=== PATIENT | male | born 1955 | race Caucasian/White ===

== ENCOUNTER 2016-10-12 19:24 | Inpatient (IN) | payer OTHER ==
[~2016-10-12] VITALS: Ht 188 cm; Wt 95.0 kg
[2016-10-12] MEDS ORDERED: LIDOCAINE/MYLANTA 40 ML BTL PO STA (20:23)
[2016-10-12] MEDS ORDERED: BELLADONNA/PHENOBARBITAL TAB PO STA (20:23)
[2016-10-12] MEDS ORDERED: morphine 4 MG/ML VIAL IV STA (20:23)
[2016-10-12] MEDS ORDERED: SOD CHLORIDE 0.9% 1,000 ML IV STA (20:23)
[2016-10-12] MEDS ORDERED: ONDANSETRON 4 MG INJ IV STA (20:23)
[2016-10-12 20:45] LABS: ABNORMAL IP MESSAGE 1; BASOPHILS % 0.2 % (0.0-2.0); EOSINOPHILS # 0.1 10^3/ul (0.0-0.5); EOSINOPHILS % 1.2 % (0.0-7.0); HEMATOCRIT 43.6 % (42.0-52.0); HEMOGLOBIN 14.6 g/dl (14.0-18.0); LYMPHOCYTES # 0.6 10^3/ul (0.8-2.9); LYMPHOCYTES % 5.2 % (15.0-51.0); MEAN CORPUSCULAR HEMOGLOBIN 31.3 pg (29.0-33.0); MEAN CORPUSCULAR HGB CONC 33.5 g/dl (32.0-37.0); MEAN CORPUSCULAR VOLUME 93.4 fl (82.0-101.0); MEAN PLATELET VOLUME 9.2 fl (7.4-10.4); MONOCYTE # 0.7 10^3/ul (0.3-0.9); MONOCYTES % 6.3 % (0.0-11.0); NEUTROPHILS % 86.7 % (39.0-77.0); NUCLEATED RED BLOOD CELLS% 0.2 /100WBC (0.0-0.0); PLATELET COUNT 300 10^3/UL (140-415); POSITIVE DIFF @See below; RED BLOOD COUNT 4.67 10^6/ul (4.70-6.10); RED CELL DISTRIBUTION WIDTH 13.1 % (11.5-14.5); WHITE BLOOD COUNT 10.9 10^3/ul (4.8-10.8)
[2016-10-12 21:06] LABS: INR 0.95; PROTIME 12.7 Sec (12.2-14.2)
[2016-10-12 21:07] LABS: ALBUMIN 4.2 g/dl (3.3-4.9); ALBUMIN/GLOBULIN RATIO 1.27; BILIRUBIN,INDIRECT 0.3 mg/dl (0-1.1); BILIRUBIN,TOTAL 0.3 mg/dl (0.2-1.3); CALCIUM 9.2 mg/dl (8.4-10.2); CREATININE 0.86 mg/dl (0.61-1.24); TOTAL PROTEIN 7.5 g/dl (6.1-8.1)
[2016-10-12] MEDS ORDERED: KETOROLAC 15 MG INJ IV ONE (21:47)
--- NOTE | 2016-10-12 21:50 | RADRPT ---
AMENDMENT: 10/21/2016 10:49:50 PM Karen Marshall M.D One or more of the following dose reduction techniques were used: - Automated exposure control. - Adjustment of the mA and/or kV according to patient size. - Use of iterative reconstruction technique. PROCEDURE: CT ABDOMEN AND PELVIS WITHOUT CONTRAST: CLINICAL INDICATION: 60 years of age, male, left lower quadrant pain . COMPARISON: None available. TECHNIQUE: CT of the abdomen and pelvis was performed without intravenous contrast. Oral contrast wa s not administered prior to the examination. Coronal and sagittal reformatted images were obtained from the axial source images. Images were revi ewed on a high-resolution PACS workstation. Dose information: Based on a 32 cm phantom, the estimated radiation dose (CTDI vol mGy) for each ser ies in this exam is 14. The estimated cumulative dose (DLP mGy-cm) is 838. FINDINGS: In the absence of intravenous contrast, the study constitutes a limited assessment of the solid orga ns, bowel and vessels. LUNG BASES: Right lung base atelectasis. Coronary artery calcification greatest along LAD. There i s elevation of the right diaphragm. ABDOMEN/PELVIS: Liver: Indeterminate sub centimeter hypodensity right lobe segment 6 cannot be characterized (3/53). Otherwise normal. Gallbladder: Wall thickening and luminal narrowing of the gastric fundus as likely due to focal stef omyomatosis. Otherwise unremarkable. Bile ducts: No intrahepatic or extrahepatic biliary duct dilatation. Spleen: Normal noncontrast appearance. Pancreas: Normal noncontrast appearance. Adrenal glands: Normal noncontrast appearance. Kidneys and ureters: 2.2 cm left renal parenchymal hypodensity likely represents a cyst. Kidneys ar e otherwise normal. Negative for hydronephrosis. Negative for urinary calculi. Aorta and IVC: Atherosclerosis aorta and iliac vessels. No aneurysm. Lymph nodes: Normal noncontrast appearance. Gastrointestinal tract: There is circumferential mural thickening of the sigmoid colon with numerou s diverticula and edema in the surrounding fat most in keeping with acute diverticulitis. The wall thickening is pronounced and other inflammatory conditions cannot be excluded including inflammatory neoplasms. Negative for surrounding adenopathy. There is diverticulosis in the remaining colon gre atest in the descending colon. Upstream the colon is decompressed. There is dilated small bowel in the left mid abdomen measuring up to 3.3 cm with the small bowel fec es sign (601/44). Zone of transition from dilated bowel to collapsed bowel is the left lower quadra nt where there is abrupt kinking of the bowel (601/32). There is distension of the duodenum measuri ng 4.1 cm. Stomach is decompressed. Gas in distal esophagus may be due to reflux or vomiting. Appendix: Normal Bladder: There is a right posterior lateral bladder diverticulum. Otherwise normal. Pelvic Organs: Enlarged prostate gland indents bladder base. Peritoneal cavity: No free fluid or free intraperitoneal air. Single bubble of gas in the extraper itoneal compartment in the right upper quadrant is of uncertain significance (601/46) Abdominal wall: Normal noncontrast appearance. BONES: Musculoskeletal: Multilevel degenerative changes in spine greatest at L5-S1. No suspicious bone les ions. IMPRESSION: Segmental colitis of the sigmoid colon with associated diverticula likely representing acute diverti culitis without evidence of perforation or abscess. The wall thickening is pronounced and a neoplas tic process cannot be excluded. Recommend correlation with results of prior colonoscopies or follow -up colonoscopy after the acute situation subsides. Partial distal small bowel obstruction likely due to an adhesion in the left lower quadrant with mil d upstream dilatation of small bowel. RPTAT: HCTS Physician Erin Date Time Electronically viewed and signed by Matthew Marshall Physician on 10/21/2016 22:50 CS/
[2016-10-12 22:30] VITALS: TEMP 99.1
[2016-10-12] MEDS ORDERED: metroNIDAZOLE 500 MG/NS (PMX) 100 ML IVPB ONE (22:30)
[2016-10-12] MEDS ORDERED: LEVOFLOXACIN 750MG/D5W (PMX) 150 ML IVPB ONE (22:30)
--- NOTE | 2016-10-12 23:09 | RADRPT ---
PROCEDURE: Portable chest x-ray. CLINICAL INDICATION: 60-year of age, male. Rule out infiltrates TECHNIQUE: Portable AP view of the chest. COMPARISON: None available. FINDINGS: There is a left subclavian indwelling port catheter with the tip over the inferior SVC. Cardiomediastinal contours are normal. Decreased lung volumes. There is bibasilar lung consolidation that may represent aspiration or pneu monia. Negative for pleural effusion or pneumothorax. No acute bony abnormality. IMPRESSION: Bibasilar lung consolidation may represent aspiration or pneumonia. Decreased lung volumes. RPTAT: HCTS Physician Erin Date Time Electronically viewed and signed by Physician Erin on 10/12/2016 23:08 CS/
--- NOTE | 2016-10-12 23:46 | ERA ---
ER Documentation Chief Complaint Date/Time DATE: 10/12/16 TIME: 23:40 Chief Complaint lower abd/pelvic pain begain LLQ x few hours, hx rectal CA HPI 60-year-old man with a history of rectal carcinoma status post chemo and radiation therapy in December 2015 presents with lower abdominal pain and nausea. Patient denies diarrhea or blood per rectum, no recent weight loss, no vomiting, no chest pain or shortness of breath. Patient states he ate [place] food last night and attributes abdominal cramping to that. ROS All systems reviewed and are negative except as per history of present illness. Medications Home Meds No Active Prescriptions or Reported Meds Allergies Allergies: Coded Allergies: Penicillins (Verified Allergy, Unknown, 10/12/16) PMhx/Soc Rectal carcinoma History of Surgery: No Anesthesia Reaction: No Hx Neurological Disorder: No Hx Respiratory Disorders: No Hx Cardiac Disorders: No Hx Psychiatric Problems: No Hx Alcohol Use: No Hx Substance Use: No Hx Tobacco Use: No Smoking Status: Never smoker FmHx Family History: No diabetes Physical Exam Vitals Vital Signs Date Time Temp Pulse Resp B/P Pulse Ox O2 Delivery O2 Flow Rate FiO2 10/12/16 23:30 16 100/63 94 Nasal Cannula 3.0 10/12/16 22:30 99.1 93 16 102/57 94 Nasal Cannula 2.0 10/12/16 21:34 90 20 103/71 94 Nasal Cannula 2.0 10/12/16 19:38 98.9 89 21 99/69 97 Physical Exam GENERAL: Well-developed, well-nourished, appears dehydrated, febrile HEENT: Dry mucous membranes, pink conjunctiva, no cervical spine tenderness or step-off deformities, no goiter, no jaundice or icterus, extraocular movements intact without pain. No submandibular induration, and no pharyngeal erythema NEURO: Alert and oriented 3, cranial nerves II through XII intact bilaterally, pupils equal round reactive to light, no focal deficits or facial asymmetry, sensation intact distally Strength 5/5 in upper and lower extremities bilaterally CARDIAC: Regular rate and rhythm, no murmurs rubs or gallops LUNGS: Clear bilaterally no wheezing crackles or stridor ABDOMEN: Soft nontender, no guarding, no rigidity, no rebound, no psoas sign no obturator sign. SKIN: Warm and dry to touch, no abrasions, contusions, or hematomas, no lacerations, no ecchymosis, no target lesions, and without ulcers EXTREMITIES: No clubbing cyanosis or edema, calves are bilaterally symmetrical, no Homans sign, no popliteal cord sign. Distal pulses equal and bilateral PSYCH: Normal affect without agitation or irritability Result Diagram: 10/12/16203310/12/162033 Results 24 hrs Laboratory Tests Test 10/12/16 20:34 White Blood Count 10.910^3/ul Red Blood Count 4.6710^6/ul Hemoglobin 14.6g/dl Hematocrit 43.6% Mean Corpuscular Volume 93.4fl Mean Corpuscular Hemoglobin 31.3pg Mean Corpuscular Hemoglobin Concent 33.5g/dl Red Cell Distribution Width 13.1% Platelet Count 08168^3/UL Mean Platelet Volume 9.2fl Neutrophils % 86.7% Lymphocytes % 5.2% Monocytes % 6.3% Eosinophils % 1.2% Basophils % 0.2% Nucleated Red Blood Cells % 0.2/100WBC Neutrophils # (Manual) 9.410^3/ul Lymphocytes # 0.610^3/ul Monocytes # 0.710^3/ul Eosinophils # 0.110^3/ul Basophils # 0.010^3/ul Nucleated Red Blood Cells # 0.010^3/ul Prothrombin Time 12.7Sec Prothrombin Time Ratio 1.0 INR International Normalized Ratio 0.95 Sodium Level 140mmol/L Potassium Level 4.0mmol/L Chloride Level 98mmol/L Carbon Dioxide Level 28mmol/L Anion Gap 18 Blood Urea Nitrogen 21mg/dl Creatinine 0.86mg/dl Glucose Level 94mg/dl Calcium Level 9.2mg/dl Total Bilirubin 0.3mg/dl Direct Bilirubin 0.00mg/dl Indirect Bilirubin 0.3mg/dl Aspartate Amino Transf (AST/SGOT) 19IU/L Alanine Aminotransferase (ALT/SGPT) 29IU/L Alkaline Phosphatase 80IU/L Total Protein 7.5g/dl Albumin 4.2g/dl Globulin 3.30g/dl Albumin/Globulin Ratio 1.27 Lipase 92U/L Current Medications Medications (Trade) Dose Ordered Sig/Maude Route PRN Reason Start Time Stop Time Status Last Admin Dose Admin Sodium Chloride (NS) 1,000 ml @ 2,000 mls/hr Q30M STAT IV 10/12/16 20:23 10/12/16 20:52 DC 10/12/16 20:36 Morphine Sulfate (morphine) 4 mg ONCE STAT IV 10/12/16 20:23 10/12/16 20:25 DC 10/12/16 20:35 Ondansetron HCl (Zofran Inj) 4 mg ONCE STAT IV 10/12/16 20:23 10/12/16 20:25 DC 10/12/16 20:35 Miscellaneous Medication (Gi Cocktail (2)) 40 ml ONCE STAT PO 10/12/16 20:23 10/12/16 20:26 DC 10/12/16 21:09 Belladonna/ Phenobarbital () 2 tab ONCE STAT PO 10/12/16 20:23 10/12/16 20:26 DC 10/12/16 21:09 Ketorolac Tromethamine 15 mg 15 mg ONCE ONCE IV 10/12/16 21:47 10/12/16 21:48 DC 10/12/16 21:55 Levofloxacin/ Dextrose 150 ml @ 100 mls/hr ONCE ONCE IVPB 10/12/16 22:30 10/12/16 23:59 10/12/16 23:29 Metronidazole (Flagyl 500 Mg (Pmx)) 100 ml @ 100 mls/hr ONCE ONCE IVPB 10/12/16 22:30 10/12/16 23:29 DC 10/12/16 22:38 Procedures/MDM IV line was established patient was placed on unemployment specialist rhythm strip revealed a sinus rhythm at 80 bpm. Patient was afebrile. I administered 2 L normal saline intravenously for dehydration, morphine 4 mg IV , Zofran 4 mg IV, Maalox suspension 30 cc p.o. with good response. For continued discomfort patient received Toradol [address] scan of the abdomen and pelvis revealed acute diverticulitis with further thickening of the rectosigmoid. Please refer to radiologist dictation for full report. CBC was unremarkable, electrolytes revealed dehydration with a BUN creatinine of 21/0.9, liver function tests normal, coagulation profile normal. One AP view of the chest performed, read by me reveals no acute infiltrates, normal mediastinum, sharp costophrenic and cardiac borders, no air under the diaphragm. Otherwise unremarkable chest x-ray. I administered levofloxacin 750 mg IV and metronidazole 500 mg IV 1. Patient will be admitted to [facility] for continued medical management and IV antibiotics per Departure Diagnosis: Primary Impression: Acute diverticulitis Additional Impressions: Rectal carcinoma Dehydration Condition: PATSY Lewis MD Oct 12, 2016 23:45
[2016-10-13] VITALS (7 sets, daily range): BP systolic 87–118; BP diastolic 52–65; PULSE 76–94; RESP 16–20; Ht 188 cm; Wt 95.0 kg
[2016-10-13] MEDS ORDERED: ONDANSETRON 4 MG INJ IV PRN (01:30)
[2016-10-13] MEDS: SOD CHLORIDE 0.9% 1,000 ML IV SCH ×3 (01:48→17:30)
[2016-10-13] MEDS: morphine 4 MG/ML VIAL IV PRN ×4 (03:01→19:08)
--- NOTE | 2016-10-13 03:06 | HP ---
DATE OF ADMISSION: 10/12/2016 TIME: 1:30 a.m. CHIEF COMPLAINT: Lower abdominal pain. HISTORY OF PRESENT ILLNESS: A 60-year-old male with a past medical history of rectal cancer diagnosed at least October 2015, status post chemo and radiation, who is in remission at this time, who presented to the emergency room today because of lower abdominal pain. The patient states that pain started earlier today after he had some food and he felt he was going to go , but he did not. He had a little nausea but no actual vomiting and the pain has only worsened in intensity since. His last bowel movement was yesterday and it was normal and there was no blood in it. He has also not had any fever, but he does feel ill and has had some loss of appetite. Admits he is a chronic smoker and has had some mild respiratory distress warranting oxygen administration while he is here. No passing out episodes. No headaches. DICTATION ENDS HERE. Dictated By: Claudia Garcia MD /[email or web address] /Document#: [id number]
[2016-10-13] MEDS: ACETAMINOPHEN 325 MG TAB PO PRN (03:28)
[2016-10-13] MEDS ORDERED: SOD CHLORIDE 0.9% 1,000 ML IV ONE (03:30)
--- NOTE | 2016-10-13 03:42 | HP ---
DATE OF ADMISSION: 10/12/2016 CONTINUATION: REVIEW OF SYSTEMS: Twelve point review of systems was done. Pertinent findings are listed in the HPI. Patient has had no headaches. No vision changes and no neurologic deficit. No joint swelling and no extremity fullness or numbness. All other systems reviewed and negative. MEDICATIONS: As follows, patient does not have any home medications. PAST MEDICAL HISTORY: Rectal cancer, status post chemo and radiation, currently in remission, and also, patient has been told in the past that he is prediabetic, but he is not on any medications. SURGICAL HISTORY: He has had knee surgery and laminectomy. ALLERGIES: ALLERGIC TO PENICILLINS. SOCIAL HISTORY: He is a chronic smoker. Denies alcohol abuse or substance abuse. FAMILY HISTORY: Noncontributory. PHYSICAL EXAMINATION: VITAL SIGNS: Temperature 99.2, pulse 94, respirations 20, blood pressure 118/65, saturations 94 percent on oxygen via nasal cannula via 2 L/minute. GENERAL APPEARANCE: A well-developed male, alert and oriented, painful distress. HEENT: Head normocephalic. Pupils equal and reactive. Mucous membranes moist. Posterior pharynx clear of erythema and exudates. No scleral icterus. NECK: Supple without tenderness. No JVD. LUNGS: Diminished breath sounds bilaterally with diffuse expiratory wheezes. CARDIAC: S1, S2. No murmurs. ABDOMEN: Diffuse tenderness, especially in the lower abdomen. There is no focality to his tenderness. There is also diffuse guarding. Upper abdomen is benign. Bowel sounds are somewhat hyperactive. EXTREMITIES: Negative for edema. SKIN: Devoid of rash or jaundice. PSYCHIATRIC: Patient is calm, cooperative with exam. LABORATORY VALUES: He has leukocytosis of 10,000, normal hemoglobin, normal hematocrit, but he does have a neutrophil predominance, normal platelet count. On chemistry, a complete metabolic profile was done and BUN and anion gap were mildly elevated; otherwise, unremarkable. Coag profile was normal. Urinalysis not done. IMAGING: Chest x-ray showed bibasilar lung consolidation, which could be secondary to aspiration pneumonia with decreased lung volumes. His CT of the abdomen showed segmental colitis of the sigmoid colon with several diverticula representing acute diverticulitis without perforation of abscess. There is also wall thickening that is concerning for a neoplastic process, and then also, the presence of a small bowel obstruction, likely secondary to an adhesion. IMPRESSION: A 60-year-old male who presents with an acute onset of abdominal pain x1 day's duration with the followin. Acute diverticulitis. 2. Presence of small bowel obstruction, likely secondary to adhesions. 3. History of rectal cancer, status post chemo, radiation. Patient said to be in remission, but CT concerning for wall thickening in the sigmoid colon. Please note, that this could also be sequela of radiation. 4. Chronic tobacco use and abuse. 5. Prediabetic per report. 6. Mild chronic obstructive pulmonary disease exacerbation. PLAN: Admit patient to the medical-surgical floor, commence empiric antibiotics. In view of the presence of small bowel obstruction, we will keep patient n.p.o for now and use IV fluid for hydration. We will also get a general surgical consultation. We will provide supportive care and pain control. We will also provide antiemetics. We will do AccuCheks because of his prediabetes. If these are normal, we will discontinue after 24 hours, and we will provide prophylaxis with Lovenox and Pepcid. Further interventions will depend on his clinical course. For his COPD, we will put him on bronchodilator therapy, until his oxygenation improves and intervene for that if indicated. With concerns of bibasilar pneumonia on chest x-ray, patient should be treated with fluoroquinolones as well. This plan of care has been discussed with the patient and questions have been answered. For further information and clarification, please review the patient's chart and my orders. Patient has been counseled on the need to quit tobacco use. We will continue to reinforce this throughout his hospitalization. Dictated By: Claudia Garcia MD /[email or web address] /Document#: [id number]
[2016-10-13] MEDS: metroNIDAZOLE 500 MG/NS (PMX) 100 ML IVPB SCH ×3 (05:07→21:06)
[2016-10-13 05:23] LABS: ABNORMAL IP MESSAGE 1; BASOPHILS % 0.1 % (0.0-2.0); EOSINOPHILS % 0.2 % (0.0-7.0); HEMATOCRIT 36.7 % (42.0-52.0); HEMOGLOBIN 11.9 g/dl (14.0-18.0); LYMPHOCYTES # 0.5 10^3/ul (0.8-2.9); LYMPHOCYTES % 5.1 % (15.0-51.0); MEAN CORPUSCULAR HGB CONC 32.4 g/dl (32.0-37.0); MEAN CORPUSCULAR VOLUME 95.6 fl (82.0-101.0); MEAN PLATELET VOLUME 9.3 fl (7.4-10.4); MONOCYTE # 0.5 10^3/ul (0.3-0.9); MONOCYTES % 5.1 % (0.0-11.0); NEUTROPHILS % 89.1 % (39.0-77.0); PLATELET COUNT 223 10^3/UL (140-415); POSITIVE DIFF @See below; RED BLOOD COUNT 3.84 10^6/ul (4.70-6.10); RED CELL DISTRIBUTION WIDTH 13.2 % (11.5-14.5)
[2016-10-13 05:36] LABS: INR 1.1; PARTIAL THROMBOPLASTIN TIME 34.8 Sec (25.0-35.0); PROTIME 14.2 Sec (12.2-14.2); PT RATIO 1.1
[2016-10-13 05:51] LABS: CHOL/HDL RATIO 2.9 RATIO; MAGNESIUM 1.7 mg/dl (1.7-2.5)
[2016-10-13] MEDS: FAMOTIDINE 20 MG INJ IV SCH ×2 (09:06→21:06)
[2016-10-13] MEDS: DOCUSATE SODIUM 100 MG CAP PO SCH ×2 (09:06→21:00)
[2016-10-13] MEDS: ENOXAPARIN 40 MG/0.4 ML SYG SC SCH (09:12)
[2016-10-13] MEDS: ALBUTEROL/IPRATROPIUM (NEB) 3 ML AMP HHN SCH ×4 (09:15→20:02)
--- NOTE | 2016-10-13 09:37 | CONS ---
Date/Time of Note Date/Time of Note DATE: 10/13/16 TIME: 09:37 Assessment/Plan Assessment/Plan Chief Complaint/Hosp Course 60-year-old male with abdominal pain, possible small bowel obstruction * Personally reviewed CT scan with radiologist. Distal sigmoid thickening differential diagnosis would include: Radiation colitis, diverticulitis, persistent neoplasm. Some small bowel dilation with distal collapse. * Will order small bowel follow-through for further evaluation and assessment. Further recommendation will be made based on patient's clinical course and results of diagnostic studies. Problems: Consultation Date/Type/Reason Admit Date/Time Oct 12, 2016 at 23:03 Date of Consultation: Oct 13, 2016 Type of Consultation: GENERAL SURGERY Reason for Consultation Abdominal pain Hx of Present Illness Patient is a 60-year-old male with a history of rectal cancer status post neoadjuvant chemoradiation therapy. He last received this in December. He presented to the emergency room complaining of a one-day history of lower abdominal pain. He reports some nausea, but no vomiting. He states his last bowel movement was about an hour before the onset of the pain. He has not been passing flatus. He denies any similar episodes of pain in the past. On arrival to the emergency room he was found to be afebrile and hemodynamically stable. CT scan of the abdomen and pelvis showed some thickening of the distal sigmoid colon as well as dilated loops of small bowel with fecalization. Currently still complaining of crampy abdominal pain that comes and goes. A 14 point review of systems was conducted and was negative except for that which is mentioned in HPI Past Medical History Rectal cancer status post neoadjuvant chemoradiotherapy Social History Smoking Status: Current some day smoker Exam/Review of Systems Vital Signs Vitals Vital Signs Date Time Temp Pulse Resp B/P Pulse Ox O2 Delivery O2 Flow Rate FiO2 10/13/16 09:20 75 18 92 Nasal Cannula 4.0 10/13/16 07:29 99.0 87/52 Intake and Output 10/12/16 10/12/16 10/13/16 15:00 23:00 07:00 Intake Total 1375 ml Balance 1375 ml Exam GENERAL: Awake, alert, oriented x 3. No acute distress. SKIN: No jaundice. HEENT: PERRLA, EOMI, No Scleral Icterus NECK: Supple without JVD CARDIOVASCULAR: S1S2, regular rate and rhythm. No murmurs appreciated. RESPIRATORY: Clear to auscultation bilaterally. ABDOMEN: Soft, bowel sounds present, nondistended, there is lower abdominal tenderness to palpation. There is no rebound or guarding or other evidence of peritonitis. EXTREMITIES: Free range of motion x 4. No cyanosis, edema, or clubbing. NEUROLOGIC: Cranial nerves II-XII are intact. Sensation is intact grossly. Results Result Diagram: 10/13/16 0425 10/12/162033 Results 24 hrs Laboratory Tests Test 10/12/16 20:34 10/13/16 04:25 White Blood Count 10.9 H 10.0 Red Blood Count 4.67 L 3.84 L Hemoglobin 14.6 11.9 L Hematocrit 43.6 36.7 L Mean Corpuscular Volume 93.4 95.6 Mean Corpuscular Hemoglobin 31.3 31.0 Mean Corpuscular Hemoglobin Concent 33.5 32.4 Red Cell Distribution Width 13.1 13.2 Platelet Count 300 223 # Mean Platelet Volume 9.2 9.3 Neutrophils % 86.7 H 89.1 H Lymphocytes % 5.2 L 5.1 L Monocytes % 6.3 5.1 Eosinophils % 1.2 0.2 Basophils % 0.2 0.1 Nucleated Red Blood Cells % 0.2 H 0.0 Neutrophils # (Manual) 9.4 H 8.9 H Lymphocytes # 0.6 L 0.5 L Monocytes # 0.7 0.5 Eosinophils # 0.1 0.0 Basophils # 0.0 0.0 Nucleated Red Blood Cells # 0.0 0.0 Prothrombin Time 12.7 14.2 Prothrombin Time Ratio 1.0 1.1 INR International Normalized Ratio 0.95 1.10 Sodium Level 140 Potassium Level 4.0 Chloride Level 98 Carbon Dioxide Level 28 Anion Gap 18 H Blood Urea Nitrogen 21 H Creatinine 0.86 Glucose Level 94 Calcium Level 9.2 Total Bilirubin 0.3 Direct Bilirubin 0.00 Indirect Bilirubin 0.3 Aspartate Amino Transf (AST/SGOT) 19 Alanine Aminotransferase (ALT/SGPT) 29 Alkaline Phosphatase 80 Total Protein 7.5 Albumin 4.2 Globulin 3.30 H Albumin/Globulin Ratio 1.27 Lipase 92 Activated Partial Thromboplast Time 34.8 Hemoglobin A1c 5.8 Magnesium Level 1.7 Triglycerides Level 70 Cholesterol Level 164 LDL Cholesterol, Calculated 94 HDL Cholesterol 56 Cholesterol/HDL Ratio 2.9 Medications Medications Current Medications Morphine Sulfate (morphine) 4 mg Q4H PRN IV pain Last administered on 09:17; Admin Dose 4 MG; Start 10/13/16 at 01:30 Docusate Sodium 100 mg 100 mg BID PO Last administered on 10/13/16 09:06; Admin Dose 100 MG; Start 10/13/16 at 09:00 Sodium Chloride (NS) 1,000 ml @ 125 mls/hr Q8H IV Last administered on 01:48; Admin Dose 125 MLS/HR; Start 10/13/16 at 01:30 Enoxaparin Sodium (Lovenox) 40 mg DAILY SC Last administered on 10/13/16 09:12 ; Admin Dose 40 MG; Start 10/13/16 at 09:00 Famotidine (Pepcid Iv) 20 mg BID IV Last administered on 10/13/16 09:06; Admin Dose 20 MG; Start 10/13/16 at 09:00 Ondansetron HCl 4 mg 4 mg Q4H PRN IV NAUSEA AND/OR VOMITING; Start 10/13/16 at 01:30 Levofloxacin/ Dextrose 100 ml @ 100 mls/hr Q48H IVPB ; Start 10/14/16 at 23:30 Metronidazole (Flagyl 500 Mg (Pmx)) 100 ml @ 100 mls/hr Q8 IVPB Last administered on 10/13/16 05:07; Admin Dose 100 MLS/HR; Start 10/13/16 at 06:00 Acetaminophen (Tylenol Tab) 650 mg Q6H PRN PO PAIN AND OR ELEVATED TEMP Last administered on 10/13/16 03:28; Admin Dose 650 MG; Start 10/13/16 at 03:30 Procedures Procedures PROCEDURE: CT ABDOMEN AND PELVIS WITHOUT CONTRAST: CLINICAL INDICATION: 60 years of age, male, left lower quadrant pain . COMPARISON: None available. TECHNIQUE: CT of the abdomen and pelvis was performed without intravenous contrast. Oral contrast was not administered prior to the examination. Coronal and sagittal reformatted images were obtained from the axial source images. Images were reviewed on a high-resolution PACS workstation. Dose information: Based on a 32 cm phantom, the estimated radiation dose (CTDI vol mGy) for each series in this exam is 14. The estimated cumulative dose ( DLP mGy-cm) is 838. FINDINGS: In the absence of intravenous contrast, the study constitutes a limited assessment of the solid organs, bowel and vessels. LUNG BASES: Right lung base atelectasis. Coronary artery calcification greatest along LAD. There is elevation of the right diaphragm. ABDOMEN/PELVIS: Liver: Indeterminate sub centimeter hypodensity right lobe segment 6 cannot be characterized (3/53). Otherwise normal. Gallbladder: Wall thickening and luminal narrowing of the gastric fundus as likely due to focal adenomyomatosis. Otherwise unremarkable. Bile ducts: No intrahepatic or extrahepatic biliary duct dilatation. Spleen: Normal noncontrast appearance. Pancreas: Normal noncontrast appearance. Adrenal glands: Normal noncontrast appearance. Kidneys and ureters: 2.2 cm left renal parenchymal hypodensity likely represents a cyst. Kidneys are otherwise normal. Negative for hydronephrosis. Negative for urinary calculi. Aorta and IVC: Atherosclerosis aorta and iliac vessels. No aneurysm. Lymph nodes: Normal noncontrast appearance. Gastrointestinal tract: There is circumferential mural thickening of the sigmoid colon with numerous diverticula and edema in the surrounding fat most in keeping with acute diverticulitis. The wall thickening is pronounced and other inflammatory conditions cannot be excluded including inflammatory neoplasms. Negative for surrounding adenopathy. There is diverticulosis in the remaining colon greatest in the descending colon. Upstream the colon is decompressed. There is dilated small bowel in the left mid abdomen measuring up to 3.3 cm with the small bowel feces sign (601/44). Zone of transition from dilated bowel to collapsed bowel is the left lower quadrant where there is abrupt kinking of the bowel (601/32). There is distension of the duodenum measuring 4.1 cm. Stomach is decompressed. Gas in distal esophagus may be due to reflux or vomiting. Appendix: Normal Bladder: There is a right posterior lateral bladder diverticulum. Otherwise normal. Pelvic Organs: Enlarged prostate gland indents bladder base. Peritoneal cavity: No free fluid or free intraperitoneal air. Single bubble of gas in the extraperitoneal compartment in the right upper quadrant is of uncertain significance (601/46) Abdominal wall: Normal noncontrast appearance. BONES: Musculoskeletal: Multilevel degenerative changes in spine greatest at L5-S1. No suspicious bone lesions. IMPRESSION: Segmental colitis of the sigmoid colon with associated diverticula likely representing acute diverticulitis without evidence of perforation or abscess. The wall thickening is pronounced and a neoplastic process cannot be excluded. Recommend correlation with results of prior colonoscopies or follow-up colonoscopy after the acute situation subsides. Partial distal small bowel obstruction likely due to an adhesion in the left lower quadrant with mild upstream dilatation of small bowel. RPTAT: HCTS Physician Erin Date Time Electronically viewed and signed by Matthew Marshall Physician on 10/12/2016 21: 50 CS/ CC: PATSY MA MD, MICHAEL A. MD Oct 13, 2016 09:37
[2016-10-13] MEDS ORDERED: IOHEXOL 300MG/ML 150 ML BTL ONE (10:40)
--- NOTE | 2016-10-13 16:13 | RADRPT ---
PROCEDURE: Small bowel follow-through. CLINICAL INDICATION: Abdomen pain. TECHNIQUE: Water-soluble contrast was administered orally and several spot and overhead radiograph s of the abdomen were obtained. COMPARISON: None. FINDINGS: There are degenerative changes of the spine on the preliminary radiograph. The preliminary radiogra ph is otherwise unremarkable. There is no small bowel displacement or mass. The small bowel folds are normal. The proximal small bowel is mildly dilated measuring 4.5 cm in diameter. There is no evidence of ob struction. Transit time is normal with contrast in the colon at 60 minutes. IMPRESSION: 1. Degenerative changes of the spine. 2. Mildly dilated proximal small bowel. 3. No evidence of obstruction. RPTAT: QQ .Chino Garrett MD, MD Date Time Electronically viewed and signed by .Chino Garrett MD, on 10/13/2016 16:12 .R/
[2016-10-13] MEDS: LEVOFLOXACIN 500MG/D5W (PMX) 100 ML IVPB SCH (23:20)
[2016-10-14 02:00] VITALS: BP 99/51; PULSE 79; RESP 17
[2016-10-14] MEDS: SOD CHLORIDE 0.9% 1,000 ML IV SCH ×4 (04:30→23:34)
[2016-10-14 05:28] LABS: ABNORMAL IP MESSAGE 1; BASOPHILS % 0.3 % (0.0-2.0); EOSINOPHILS # 0.1 10^3/ul (0.0-0.5); EOSINOPHILS % 0.9 % (0.0-7.0); HEMATOCRIT 37.1 % (42.0-52.0); HEMOGLOBIN 11.9 g/dl (14.0-18.0); LYMPHOCYTES # 0.5 10^3/ul (0.8-2.9); LYMPHOCYTES % 6.7 % (15.0-51.0); MEAN CORPUSCULAR HEMOGLOBIN 30.8 pg (29.0-33.0); MEAN CORPUSCULAR HGB CONC 32.1 g/dl (32.0-37.0); MEAN CORPUSCULAR VOLUME 96.1 fl (82.0-101.0); MEAN PLATELET VOLUME 9.6 fl (7.4-10.4); MONOCYTE # 0.4 10^3/ul (0.3-0.9); MONOCYTES % 5.8 % (0.0-11.0); NEUTROPHILS % 85.9 % (39.0-77.0); PLATELET COUNT 194 10^3/UL (140-415); POSITIVE DIFF @See below; RED BLOOD COUNT 3.86 10^6/ul (4.70-6.10); RED CELL DISTRIBUTION WIDTH 13.3 % (11.5-14.5); WHITE BLOOD COUNT 7.5 10^3/ul (4.8-10.8)
[2016-10-14 05:32] LABS: PHOSPHORUS 2.5 mg/dl (2.5-4.9)
[2016-10-14 05:37] LABS: ALBUMIN/GLOBULIN RATIO 1.15; BILIRUBIN,INDIRECT 0.5 mg/dl (0-1.1); BILIRUBIN,TOTAL 0.5 mg/dl (0.2-1.3); CALCIUM 8.4 mg/dl (8.4-10.2); CREATININE 0.75 mg/dl (0.61-1.24); POTASSIUM 4.6 mmol/L (3.5-5.1); TOTAL PROTEIN 5.6 g/dl (6.1-8.1)
[2016-10-14] MEDS: metroNIDAZOLE 500 MG/NS (PMX) 100 ML IVPB SCH ×3 (06:05→22:53)
[2016-10-14 07:00] VITALS: BP 98/53; RESP 20
[2016-10-14] MEDS: ALBUTEROL/IPRATROPIUM (NEB) 3 ML AMP HHN PRN (08:34)
[2016-10-14] MEDS: DOCUSATE SODIUM 100 MG CAP PO SCH ×2 (09:00→22:00)
[2016-10-14] MEDS: FAMOTIDINE 20 MG INJ IV SCH ×2 (09:26→22:00)
--- NOTE | 2016-10-14 09:28 | PN ---
Date/Time of Note Date/Time of Note DATE: 10/14/16 TIME: 09:25 Assessment/Plan Lines/Catheters IV Catheter Type (from [facility]): Central Line Assessment/Plan Assessment/Plan 60-year-old male with abdominal pain, possible small bowel obstruction * Personally reviewed CT scan with radiologist. Distal sigmoid thickening differential diagnosis would include: Radiation colitis, diverticulitis, persistent neoplasm. Some small bowel dilation with distal collapse. * Small bowel follow through negative for obstruction * Continue pain control, antibiotics * Advance to clear liquid diet Further recommendation will be made based on patient's clinical course and results of diagnostic studies. Subjective 24 Hr Interval Summary Still with some lower abdominal pain. Having loose stools secondary from contrast of SBFT. Afebrile. Exam/Review of Systems Vital Signs Vitals Vital Signs Date Time Temp Pulse Resp B/P Pulse Ox O2 Delivery O2 Flow Rate FiO2 10/14/16 08:35 90 20 90 Nasal Cannula 6.0 10/14/16 07:00 99.0 98/53 Intake and Output 10/13/16 10/13/16 10/14/16 15:00 23:00 07:00 Intake Total 375 ml 1075 ml 1950 ml Output Total 400 ml 1100 ml Balance 375 ml 675 ml 850 ml Exam Free Text/Dictation GENERAL: Awake, alert, oriented x 3. No acute distress. CARDIOVASCULAR: S1S2, regular rate and rhythm. No murmurs appreciated. RESPIRATORY: Clear to auscultation bilaterally. ABDOMEN: Soft, bowel sounds present, nondistended, there is lower abdominal tenderness to palpation. There is no rebound or guarding or other evidence of peritonitis. EXTREMITIES: Free range of motion x 4. No cyanosis, edema, or clubbing. Results Result Diagram: 10/14/16 0500 10/14/16 0500 RADAMES BOWERS MD Oct 14, 2016 09:28
[2016-10-14] MEDS: ENOXAPARIN 40 MG/0.4 ML SYG SC SCH (09:31)
[2016-10-14] MEDS: morphine 4 MG/ML VIAL IV PRN ×3 (10:48→23:34)
--- NOTE | 2016-10-14 16:12 | PN ---
Date/Time of Note Date/Time of Note DATE: 10/14/16 TIME: 16:09 Assessment/Plan VTE Prophylaxis VTE Prophylaxis Intervention: SCD's Lines/Catheters IV Catheter Type (from Nrs): Central Line Assessment/Plan Assessment/Plan 1. Acute diverticulitis. 2. Presence of small bowel obstruction, likely secondary to adhesions. 3. History of rectal cancer, status post chemo, radiation. Patient said to be in remission, but CT concerning for wall thickening in the sigmoid colon. Please note, that this could also be sequela of radiation. 4. Chronic tobacco use and abuse. 5. Prediabetic per report. 6. Mild chronic obstructive pulmonary disease exacerbation. Plan Small bowel follow-through negative for bowel obstruction. Clear on clear liquid diet, advance as tolerated Continue current medication including pain management Follow-up surgery recommendations Continue supplemental oxygen, as needed bronchodilators. Steroid also as needed DVT and GI prophylaxis Subjective 24 Hr Interval Summary Free Text/Dictation No acute distress Exam/Review of Systems Vital Signs Vitals Vital Signs Date Time Temp Pulse Resp B/P Pulse Ox O2 Delivery O2 Flow Rate FiO2 10/14/16 08:35 90 20 90 Nasal Cannula 6.0 10/14/16 07:00 99.0 98/53 Intake and Output 10/13/16 10/13/16 10/14/16 15:00 23:00 07:00 Intake Total 375 ml 1075 ml 1950 ml Output Total 400 ml 1100 ml Balance 375 ml 675 ml 850 ml Exam Constitutional: alert, oriented, well developed Eyes: EOMI, PERRL Respiratory: clear to auscultation, normal air movement Cardiovascular: nl pulses, regular rate and rhythm Gastrointestinal: soft, tender Extremities: normal pulses Results Result Diagram: 10/14/16 0500 10/14/16 0500 Results 24 hrs Laboratory Tests Test 10/14/16 05:00 White Blood Count 7.5 # Red Blood Count 3.86 L Hemoglobin 11.9 L Hematocrit 37.1 L Mean Corpuscular Volume 96.1 Mean Corpuscular Hemoglobin 30.8 Mean Corpuscular Hemoglobin Concent 32.1 Red Cell Distribution Width 13.3 Platelet Count 194 Mean Platelet Volume 9.6 Neutrophils % 85.9 H Lymphocytes % 6.7 L Monocytes % 5.8 Eosinophils % 0.9 Basophils % 0.3 Nucleated Red Blood Cells % 0.0 Neutrophils # (Manual) 6.4 Lymphocytes # 0.5 L Monocytes # 0.4 Eosinophils # 0.1 Basophils # 0.0 Nucleated Red Blood Cells # 0.0 Sodium Level 141 Potassium Level 4.6 Chloride Level 107 Carbon Dioxide Level 26 Anion Gap 13 Blood Urea Nitrogen 16 Creatinine 0.75 Glucose Level 83 Calcium Level 8.4 Phosphorus Level 2.5 Magnesium Level 2.0 Total Bilirubin 0.5 Direct Bilirubin 0.00 Indirect Bilirubin 0.5 Aspartate Amino Transf (AST/SGOT) 24 Alanine Aminotransferase (ALT/SGPT) 22 Alkaline Phosphatase 50 Total Protein 5.6 #L Albumin 3.0 #L Globulin 2.60 Albumin/Globulin Ratio 1.15 Medications Medications Current Medications Morphine Sulfate (morphine) 4 mg Q4H PRN IV pain Last administered on 15:54; Admin Dose 4 MG; Start 10/13/16 at 01:30 Docusate Sodium 100 mg 100 mg BID PO Last administered on 10/13/16 09:06; Admin Dose 100 MG; Start 10/13/16 at 09:00 Sodium Chloride (NS) 1,000 ml @ 125 mls/hr Q8H IV Last administered on 13:47; Admin Dose 125 MLS/HR; Start 10/13/16 at 01:30 Enoxaparin Sodium (Lovenox) 40 mg DAILY SC Last administered on 10/14/16 09:31 ; Admin Dose 40 MG; Start 10/13/16 at 09:00 Famotidine (Pepcid Iv) 20 mg BID IV Last administered on 10/14/16 09:26; Admin Dose 20 MG; Start 10/13/16 at 09:00 Ondansetron HCl 4 mg 4 mg Q4H PRN IV NAUSEA AND/OR VOMITING; Start 10/13/16 at 01:30 Metronidazole (Flagyl 500 Mg (Pmx)) 100 ml @ 100 mls/hr Q8 IVPB Last administered on 10/14/16 14:09; Admin Dose 100 MLS/HR; Start 10/13/16 at 06:00 Acetaminophen 650 mg 650 mg Q6H PRN PO PAIN AND OR ELEVATED TEMP Last administered on 10/13/16 03:28; Admin Dose 650 MG; Start 10/13/16 at 03:30 Levofloxacin/ Dextrose (Levaquin 500mg/ D5W 100 ml (Pmx)) 100 ml @ 100 mls/hr Q24H IVPB Last administered on 10/13/16t 23:20; Admin Dose 100 MLS/HR; Start at 23:00 SUNNI ABRAHAM MD Oct 14, 2016 16:12
[2016-10-14 19:35] VITALS: BP 102/55; PULSE 74; RESP 18
[2016-10-14] MEDS ORDERED: LEVOFLOXACIN 500MG/D5W (PMX) 100 ML IVPB SCH (23:30)
[2016-10-14] MEDS: LEVOFLOXACIN 500MG/D5W (PMX) 100 ML IVPB SCH (23:34)
[2016-10-15 01:52] VITALS: BP 100/54; PULSE 80; RESP 18
[2016-10-15 02:27] VITALS: BP 108/68; RESP 19
[2016-10-15] MEDS: morphine 4 MG/ML VIAL IV PRN ×3 (04:53→21:43)
[2016-10-15] MEDS: metroNIDAZOLE 500 MG/NS (PMX) 100 ML IVPB SCH ×3 (05:03→21:40)
[2016-10-15 05:33] LABS: ABNORMAL IP MESSAGE 1; BASOPHILS % 0.3 % (0.0-2.0); EOSINOPHILS # 0.3 10^3/ul (0.0-0.5); EOSINOPHILS % 3.4 % (0.0-7.0); HEMATOCRIT 36.3 % (42.0-52.0); HEMOGLOBIN 11.7 g/dl (14.0-18.0); LYMPHOCYTES # 0.5 10^3/ul (0.8-2.9); LYMPHOCYTES % 6.4 % (15.0-51.0); MEAN CORPUSCULAR HEMOGLOBIN 30.7 pg (29.0-33.0); MEAN CORPUSCULAR HGB CONC 32.2 g/dl (32.0-37.0); MEAN CORPUSCULAR VOLUME 95.3 fl (82.0-101.0); MEAN PLATELET VOLUME 9.4 fl (7.4-10.4); MONOCYTE # 0.5 10^3/ul (0.3-0.9); MONOCYTES % 7.2 % (0.0-11.0); NEUTROPHILS % 82.4 % (39.0-77.0); PLATELET COUNT 214 10^3/UL (140-415); POSITIVE DIFF @See below; RED BLOOD COUNT 3.81 10^6/ul (4.70-6.10); RED CELL DISTRIBUTION WIDTH 13.2 % (11.5-14.5); WHITE BLOOD COUNT 7.3 10^3/ul (4.8-10.8)
[2016-10-15 05:59] LABS: ALBUMIN 3.1 g/dl (3.3-4.9); ALBUMIN/GLOBULIN RATIO 1.06; BILIRUBIN,INDIRECT 0.4 mg/dl (0-1.1); BILIRUBIN,TOTAL 0.4 mg/dl (0.2-1.3); CALCIUM 8.4 mg/dl (8.4-10.2); CREATININE 0.74 mg/dl (0.61-1.24); POTASSIUM 3.8 mmol/L (3.5-5.1)
[2016-10-15 06:04] LABS: MAGNESIUM 1.9 mg/dl (1.7-2.5); PHOSPHORUS 2.8 mg/dl (2.5-4.9)
[2016-10-15 07:56] VITALS: BP 129/70; RESP 20
[2016-10-15] MEDS: ACETAMINOPHEN 325 MG TAB PO PRN (08:51)
[2016-10-15] MEDS: FAMOTIDINE 20 MG INJ IV SCH ×2 (08:51→21:39)
[2016-10-15] MEDS: ENOXAPARIN 40 MG/0.4 ML SYG SC SCH (08:52)
[2016-10-15] MEDS: DOCUSATE SODIUM 100 MG CAP PO SCH ×2 (09:00→21:42)
[2016-10-15] MEDS: ALBUTEROL/IPRATROPIUM (NEB) 3 ML AMP HHN PRN ×3 (09:30→22:12)
--- NOTE | 2016-10-15 12:55 | PN ---
Date/Time of Note Date/Time of Note DATE: 10/15/16 TIME: 12:54 Assessment/Plan VTE Prophylaxis VTE Prophylaxis Intervention: LMWH Lines/Catheters IV Catheter Type (from Nrs): Central Line Central line still needed: Yes (IV abx and dificutl peripheral access ) Assessment/Plan Assessment/Plan 1. Acute diverticulitis. 2. Presence of small bowel obstruction, likely secondary to adhesions. 3. History of rectal cancer, status post chemo, radiation. Patient said to be in remission, but CT concerning for wall thickening in the sigmoid colon. Please note, that this could also be sequela of radiation. 4. Chronic tobacco use and abuse. 5. Prediabetic per report. 6. Mild chronic obstructive pulmonary disease exacerbation. Plan Small bowel follow-through negative for bowel obstruction. tolerated clear liquid diet, pt has good bowel sounds, had a soft BM today, will advance to soft diet today Continue current medication including pain management pt wants to fly back to [place] on sunday and want to get discharge Continue supplemental oxygen, as needed bronchodilators. Steroid also as needed DVT prophylaxis with lovenox and GI prophylaxis with pepcid Subjective 24 Hr Interval Summary Free Text/Dictation no acute events Exam/Review of Systems Vital Signs Vitals Vital Signs Date Time Temp Pulse Resp B/P Pulse Ox O2 Delivery O2 Flow Rate FiO2 10/15/16 09:32 85 20 92 Nasal Cannula 5.0 10/15/16 07:56 98.8 129/70 Intake and Output 10/14/16 10/14/16 10/15/16 15:00 23:00 07:00 Intake Total 2650 ml Output Total 1000 ml Balance 1650 ml Exam Constitutional: alert, oriented, well developed Eyes: EOMI, PERRL Respiratory: clear to auscultation, normal air movement Cardiovascular: nl pulses, regular rate and rhythm Gastrointestinal: soft, tender Extremities: normal pulses Results Result Diagram: 10/15/160 10/15/16439 Results 24 hrs Laboratory Tests Test 10/15/16 04:40 White Blood Count 7.3 Red Blood Count 3.81 L Hemoglobin 11.7 L Hematocrit 36.3 L Mean Corpuscular Volume 95.3 Mean Corpuscular Hemoglobin 30.7 Mean Corpuscular Hemoglobin Concent 32.2 Red Cell Distribution Width 13.2 Platelet Count 214 Mean Platelet Volume 9.4 Neutrophils % 82.4 H Lymphocytes % 6.4 L Monocytes % 7.2 Eosinophils % 3.4 Basophils % 0.3 Nucleated Red Blood Cells % 0.0 Neutrophils # (Manual) 6.1 Lymphocytes # 0.5 L Monocytes # 0.5 Eosinophils # 0.3 Basophils # 0.0 Nucleated Red Blood Cells # 0.0 Sodium Level 141 Potassium Level 3.8 Chloride Level 102 Carbon Dioxide Level 29 Anion Gap 14 Blood Urea Nitrogen 10 Creatinine 0.74 Glucose Level 90 Calcium Level 8.4 Phosphorus Level 2.8 Magnesium Level 1.9 Total Bilirubin 0.4 Direct Bilirubin 0.00 Indirect Bilirubin 0.4 Aspartate Amino Transf (AST/SGOT) 21 Alanine Aminotransferase (ALT/SGPT) 24 Alkaline Phosphatase 61 Total Protein 6.0 L Albumin 3.1 L Globulin 2.90 Albumin/Globulin Ratio 1.06 Medications Medications Current Medications Morphine Sulfate (morphine) 4 mg Q4H PRN IV pain Last administered on 04:53; Admin Dose 4 MG; Start 10/13/16 at 01:30 Docusate Sodium 100 mg 100 mg BID PO Last administered on 10/14/16 22:00; Admin Dose 100 MG; Start 10/13/16 at 09:00 Sodium Chloride (NS) 1,000 ml @ 125 mls/hr Q8H IV Last administered on 23:34; Admin Dose 125 MLS/HR; Start 10/13/16 at 01:30 Enoxaparin Sodium (Lovenox) 40 mg DAILY SC Last administered on 10/15/16 08:52 ; Admin Dose 40 MG; Start 10/13/16 at 09:00 Famotidine (Pepcid Iv) 20 mg BID IV Last administered on 10/15/16 08:51; Admin Dose 20 MG; Start 10/13/16 at 09:00 Ondansetron HCl 4 mg 4 mg Q4H PRN IV NAUSEA AND/OR VOMITING; Start 10/13/16 at 01:30 Metronidazole (Flagyl 500 Mg (Pmx)) 100 ml @ 100 mls/hr Q8 IVPB Last administered on 10/15/16 05:03; Admin Dose 100 MLS/HR; Start 10/13/16 at 06:00 Acetaminophen 650 mg 650 mg Q6H PRN PO PAIN AND OR ELEVATED TEMP Last administered on 10/15/16 08:51; Admin Dose 650 MG; Start 10/13/16 at 03:30 Levofloxacin/ Dextrose (Levaquin 500mg/ D5W 100 ml (Pmx)) 100 ml @ 100 mls/hr Q24H IVPB Last administered on 10/14/16 23:34; Admin Dose 100 MLS/HR; Start at 23:00 MATILDE PARHAM MD Oct 15, 2016 12:55
[2016-10-15] MEDS: SOD CHLORIDE 0.9% 1,000 ML IV SCH ×2 (12:56→17:30)
--- NOTE | 2016-10-15 13:18 | PN ---
Date/Time of Note Date/Time of Note DATE: 10/15/16 TIME: 13:17 Assessment/Plan Lines/Catheters IV Catheter Type (from [facility] [place]): Central Line Assessment/Plan Assessment/Plan 60-year-old male with abdominal pain, possible small bowel obstruction * Personally reviewed CT scan with radiologist. Distal sigmoid thickening differential diagnosis would include: Radiation colitis, diverticulitis, persistent neoplasm. Some small bowel dilation with distal collapse. * Small bowel follow through negative for obstruction * Continue pain control, antibiotics * Advance to regular diet * If he tolerates regular diet with his pain controlled then he can be discharged home on oral antibiotics with follow-up with his regular oncologist as outpatient. Further recommendation will be made based on patient's clinical course. Subjective 24 Hr Interval Summary Feels much better today. Tolerating clear liquids. Having bowel movements. Afebrile. Exam/Review of Systems Vital Signs Vitals Vital Signs Date Time Temp Pulse Resp B/P Pulse Ox O2 Delivery O2 Flow Rate FiO2 10/15/16 09:32 85 20 92 Nasal Cannula 5.0 10/15/16 07:56 98.8 129/70 Intake and Output 10/14/16 10/14/16 10/15/16 15:00 23:00 07:00 Intake Total 2650 ml Output Total 1000 ml Balance 1650 ml Exam Free Text/Dictation GENERAL: Awake, alert, oriented x 3. No acute distress. CARDIOVASCULAR: S1S2, regular rate and rhythm. No murmurs appreciated. RESPIRATORY: Clear to auscultation bilaterally. ABDOMEN: Soft, bowel sounds present, nondistended, there is lower abdominal tenderness to palpation, but improved. There is no rebound or guarding or other evidence of peritonitis. EXTREMITIES: Free range of motion x 4. No cyanosis, edema, or clubbing. Results Result Diagram: 10/15/16 0440 10/15/16 0440 RADAMES BOWERS MD Oct 15, 2016 13:18
[2016-10-15 15:23] VITALS: BP 121/70; RESP 20
[2016-10-15] MEDS: LEVOFLOXACIN 500MG/D5W (PMX) 100 ML IVPB SCH (23:12)
[2016-10-16] MEDS: SOD CHLORIDE 0.9% 1,000 ML IV SCH ×3 (01:30→17:30)
[2016-10-16 02:00] VITALS: BP 101/55; RESP 18
[2016-10-16 05:32] LABS: ABNORMAL IP MESSAGE 1; BASOPHILS % 0.4 % (0.0-2.0); EOSINOPHILS # 0.3 10^3/ul (0.0-0.5); EOSINOPHILS % 6.7 % (0.0-7.0); HEMATOCRIT 34.9 % (42.0-52.0); HEMOGLOBIN 11.4 g/dl (14.0-18.0); LYMPHOCYTES # 0.5 10^3/ul (0.8-2.9); MEAN CORPUSCULAR HEMOGLOBIN 30.9 pg (29.0-33.0); MEAN CORPUSCULAR HGB CONC 32.7 g/dl (32.0-37.0); MEAN CORPUSCULAR VOLUME 94.6 fl (82.0-101.0); MEAN PLATELET VOLUME 9.6 fl (7.4-10.4); MONOCYTE # 0.5 10^3/ul (0.3-0.9); MONOCYTES % 11.3 % (0.0-11.0); NEUTROPHILS % 71.2 % (39.0-77.0); PLATELET COUNT 224 10^3/UL (140-415); POSITIVE DIFF @See below; RED BLOOD COUNT 3.69 10^6/ul (4.70-6.10); WHITE BLOOD COUNT 4.8 10^3/ul (4.8-10.8)
[2016-10-16] MEDS: metroNIDAZOLE 500 MG/NS (PMX) 100 ML IVPB SCH ×2 (05:57→14:20)
[2016-10-16 06:08] LABS: MAGNESIUM 1.9 mg/dl (1.7-2.5); PHOSPHORUS 3.7 mg/dl (2.5-4.9)
[2016-10-16 06:49] LABS: ALBUMIN/GLOBULIN RATIO 1.03; BILIRUBIN,INDIRECT 0.2 mg/dl (0-1.1); BILIRUBIN,TOTAL 0.2 mg/dl (0.2-1.3); CALCIUM 8.5 mg/dl (8.4-10.2); CREATININE 0.75 mg/dl (0.61-1.24); POTASSIUM 3.5 mmol/L (3.5-5.1); TOTAL PROTEIN 5.9 g/dl (6.1-8.1)
[2016-10-16 07:38] VITALS: BP 103/59; RESP 19
[2016-10-16] MEDS: FAMOTIDINE 20 MG INJ IV SCH (09:00)
[2016-10-16] MEDS: DOCUSATE SODIUM 100 MG CAP PO SCH (09:00)
[2016-10-16] MEDS: ENOXAPARIN 40 MG/0.4 ML SYG SC SCH (09:00)
[2016-10-16] MEDS ORDERED: HYDR-906 PO (11:36)
[2016-10-16] MEDS ORDERED: METR500T14 PO (11:36)
[2016-10-16] MEDS ORDERED: CIPR500T4 PO (11:36)
--- NOTE | 2016-10-16 11:41 | PDOCDIS ---
Discharge Instructions DIAGNOSIS Discharge Diagnosis 1. Acute diverticulitis 2. Suspect small bowel obstruction 3. History of rectal cancer 4. History of chronic tobacco use 5. History of COPD CONDITION Patient Condition: Stable HOME CARE INSTRUCTIONS: Diet Instructions: Low Fat /Cholesterol FOLLOW UP/APPOINTMENTS Follow-up Plan 1. Follow-up with oncologist in 1-2 weeks 2. Follow-up with primary care provider in 1-2 weeks MURRAY GOMEZ Oct 16, 2016 11:41
[2016-10-16] MEDS ORDERED: SENN-53 PO (12:28)
[2016-10-16] MEDS ORDERED: DOCU-216 PO (12:28)
[2016-10-16] MEDS ORDERED: HEPARIN (100 UNITS/ML) 5 ML SYG CATHETER ONE (14:30)
[2016-10-16 15:29] VITALS: BP 121/67; RESP 18
== END 2016-10-16 15:30 | disposition home or self-care (01) | DRG 388 ==
LOC: E/R 19:24 → MS1 23:03
PROVIDERS: ADMIT Family Medicine; ATTEND Family Medicine
DX: K56.5 Intestinal adhesions [bands] with obstruction (postinfection) (principal); J69.0 Pneumonitis due to inhalation of food and vomit; J18.8 Other pneumonia, unspecified organism; K57.32 Diverticulitis of large intestine without perforation or abscess without bleeding; J44.0 Chronic obstructive pulmonary disease with (acute) lower respiratory infection; J44.1 Chronic obstructive pulmonary disease with (acute) exacerbation; K50.10 Crohn's disease of large intestine without complications; Z85.048 Personal history of other malignant neoplasm of rectum, rectosigmoid junction, and anus; Z72.0 Tobacco use; R73.03 Prediabetes
CPT/HCPCS: 36415; 71010; 74176; 74250; 80053; 80061; 83036; 83690; 83735; 84100; 85025; 85610; 85730; 87040; 94640; 94664; 96374; 96375; J1642; J1650; J1885; J1956; J2270; J2405; J7030; Q9967